=== PATIENT | female | born 1975 | race Caucasian/White ===

== ENCOUNTER 2019-01-19 13:53 | Emergency (ER) | payer OTHER ==
--- NOTE | 2019-01-19 14:08 | ED ---
HPI Chest Pain - HPI Summary HPI Summary: This pt is a 43 y/o female presenting to [facility] c/o left sided chest pain since 1999 last night. Pt reports she had just left the kitchen and sat down on the couch when her chest pain began last night. She describes chest pain located on the left side anteriorly "inside." Pt states her chest pain today moved from the front to her back and thought she had a pinched nerve. At around noon today pt notes her pain moved from her back to the front. Her chest pain is aggravated with coughing, sneezing, and deep breaths. Currently her chest pain is rated 5 or 6 out of 10 in severity. Pt called her PCP and was advised to come to the ED. She has never had this pain in the past. Denies recent long distance traveling or flying. Denies fever, nausea, vomiting, SOB. Pt reports she recently did cool sculpting in her legs for the first time yesterday. Denies any PMHx. Denies tobacco and drug use, but admits to occasional alcohol use. LMP: 4.5 years ago, pt has an IUD. Fhx: grandfather with fatal aortic aneurysm, [place] in the 50s. - History of Current Complaint Hx Obtained From: Patient Onset/Duration: Started Hours Ago, Still Present Timing: Lasting Hours Current Severity: Moderate Pain Intensity: 6 Pain Scale Used: 0-10 Numeric Chest Pain Location: Left Anterior Chest Pain Radiates: No Character: Sharp/Stabbing - sharp Aggravating Factor(s): Deep Breaths, Other: - coughing and sneezing Alleviating Factor(s): Nothing Associated Signs and Symptoms: Positive: Chest Pain. Negative: Shortness of Breath, Fever, Nausea, Vomiting - Allergy/Home Medications Allergies/Adverse Reactions: Allergies Allergy/AdvReac Type Severity Reaction Status Date / Time No Known Allergies Allergy Verified 01/19/19 14:04 Home Medications: Home Medications Bc Amino Acids 1 tab PO DAILY 01/19/19 [History Confirmed 01/19/19] Cyanocobalamin TAB* [Vitamin B12 TAB*] 500 mcg PO DAILY 01/19/19 [History Confirmed 01/19/19] LevoCETirizine TAB (NF) [Xyzal TAB (NF)] 5 mg PO DAILY 01/19/19 [History Confirmed 01/19/19] Levonorgestrel (IUD) (NF) [Mirena (NF)] 20 mcg IU ONCE 01/19/19 [History Confirmed 01/19/19] Naproxen Sodium [Aleve] 220 mg PO DAILY 01/19/19 [History Confirmed 01/19/19] predniSONE TAB* [Deltasone TAB*] 5 mg PO DAILY 01/19/19 [History Confirmed 01/19] PMH/Surg Hx/FS Hx/Imm Hx Endocrine/Hematology History: Denies: Hx Diabetes Cardiovascular History: Denies: Hx Hypertension - Family History Known Family History: Positive: Cardiac Disease - [place] at around age 50 Family History: Grandfather with fatal aortic aneurysm. - Social History Alcohol Use: Occasionally Substance Use Type: Reports: None Smoking Status (MU): Never Smoked Tobacco Review of Systems Negative: Fever Positive: Chest Pain Negative: Shortness Of Breath Negative: Vomiting, Nausea Musculoskeletal: Negative Skin: Negative All Other Systems Reviewed And Are Negative: Yes Physical Exam - Summary Physical Exam Summary: VITAL SIGNS: Reviewed. GENERAL: Patient is a well-developed and nourished female who is lying comfortable in the stretcher. Patient is not in any acute respiratory distress. HEAD AND FACE: No signs of trauma. No ecchymosis, hematomas or skull depressions. No sinus tenderness. EYES: PERRLA, EOMI x 2, No injected conjunctiva, no nystagmus. EARS: Hearing grossly intact. Ear canals and tympanic membranes are within normal limits. MOUTH: Oropharynx within normal limits. NECK: Supple, trachea is midline, no adenopathy, no JVD, no carotid bruit, no c- spine tenderness, neck with full ROM. CHEST: Symmetric, mild reproducible chest tenderness. LUNGS: Clear to auscultation bilaterally. No wheezing or crackles. CVS: Regular rate and rhythm, S1 and S2 present, no murmurs or gallops appreciated. ABDOMEN: Soft, non-tender. No signs of distention. No rebound no guarding, and no masses palpated. Bowel sounds are normal. EXTREMITIES: FROM in all major joints, no edema, no cyanosis or clubbing. NEURO: Alert and oriented x 3. No acute neurological deficits. Speech is normal and follows commands. SKIN: Dry and warm Triage Information Reviewed: Yes Vital Signs Reviewed: Yes Procedures - Sedation Patient Received Moderate/Deep Sedation with Procedure: No Diagnostics - Laboratory Result Diagrams: 01/19/19 14:26 01/19/19 14:26 Lab Statement: Any lab studies that have been ordered have been reviewed, and results considered in the medical decision making process. - Radiology Chest XR Radiology Interpretation Completed By: Radiologist Summary of Radiographic Findings: IMPRESSION: No evidence for active cardiopulmonary disease. Dr. Carbone has reviewed this report. - EKG 13:56 Cardiac Rate: NL - at 89 bpm EKG Rhythm: Sinus Rhythm EKG Comparison: No Significant Change - similar to prior EKG on 04/23/14. Summary of EKG Findings: EKG at 13:56 shows normal sinus rhythm at a rate of [address] depression in leads I, II, V5, and V6. T wave inversion in leads III and aVF. Chest Pain Course/Dx - Course Assessment/Plan: This patient is a 43-year-old female who presents to the emergency room with a chief complaint of having chest pain. Chest pain is sharp , increases with deep respirations and movement of her neck. Blood test results without any significant abnormality including troponin of 0.00. D- dimer is less than 200. Chest x-ray impression: No acute pathology. In the ED course the patient was given Toradol for the pain and the patient reports significant improvement. Heart score: 0. I discussed all the findings and test results with the patient. Patient was instructed to return to the emergency room immediately if any of the symptoms return or worsen. Plan of care was discussed with the patient, and she understands and agrees. All questions were answered at patient satisfaction. There were no further complaints or concerns. Lung exam before discharge: CTA B/L. Good air exchange. No wheezing or crackles heard. CVS: S1 and S2 present. No murmurs appreciated. Patient is alert and oriented x 3. Patient is hemodynamically stable. Patient will be discharged home with follow up from her PCP in the next 2-3 days. - Chest Pain Differential Diagnosis/HQI/PQRI: Acute [place], ACS, Angina, CHF, Chest Wall, GI Disease, Lower Respiratory Infection, Pulmonary Edema - Diagnoses Provider Diagnoses: Chest pain Discharge ED - Sign-Out/Discharge Documenting (check all that apply): Patient Departure - Discharge home - Discharge Plan Condition: Stable Disposition: HOME Patient Education Materials: Chest Pain (ED) Referrals: Jazlyn Osorio MD [Primary Care Provider] - Additional Instructions: FOLLOW UP WITH YOUR PRIMARY CARE PROVIDER IN 2-3 DAYS. RETURN TO THE EMERGENCY DEPARTMENT FOR ANY WORSENING OR NEW SYMPTOMS. - Billing Disposition and Condition Condition: STABLE Disposition: Home - Attestation Statements Document Initiated by Roxi: Yes Documenting Scribe: Soha Meyer Provider For Whom Ambare is Documenting (Include Credential): Geraldo Carbone MD Scribe Attestation: Soha Sherwood, scribed for Geraldo Carbone MD on 01/19/19 at 2119. Scribe Documentation Reviewed: Yes Provider Attestation: The documentation as recorded by the Soha fang accurately reflects the service I personally performed and the decisions made by me, Geraldo Carbone MD Status of Scribe Document: Viewed
--- OUTSIDE RECORDS SUMMARY | 2019-01-19 14:32 | XMS REPORT | Continuity of Care Document ---
:1975 External Reference #:[id number] Author Name Jazlyn Osorio M.D. Address [address] [place] [address] Care Team Providers Name Role Phone Jazlyn Osorio - Family Medicine Care Team Information Dipper Machine Operator Selena ENT - Otolaryngology Care Team Information Dipper Machine Operator [phone] Jeffery Gleason MD - Dermatology Care Team Information Dipper Machine Operator [phone] Problems Active Problems Provider Date Refractory migraine without aura Misbah Krishnamurthy M.D. Onset: 09/07/2011 Neoplasm of uncertain behavior of skin Jeanna Cody M.D. Onset: 2011 Arthralgia of the lower leg Jeanna Cody M.D. Onset: 03/04/2011 Generalized anxiety disorder Jeanna Cody M.D. Onset: 03/04/2011 Adult health examination Jeanna Cody M.D. Onset: 03/04/2011 Social History Type Date Description Comments Sex Unknown Tobacco Use Start: Unknown Never Smoked Cigarettes ETOH Use Social Alcohol drinks 2-3 nights a week ; drinks 2- 4 at a time. Trying to keep it to 2 days a week, shares a bottle of wine one night. Tobacco Use Start: Unknown Patient has never smoked Smoking Status Reviewed: 01/06/19 Patient has never smoked Allergies, Adverse Reactions, Alerts Description No Known Drug Allergies Medications Active Medications SIG Qnty Indications Ordering Date Provider Vivotif take 1 pill on 4caps Z71.84 Jazlyn Quintero 01/06/[address] fam Osorio M.D. complete the whole dosing at least one week prior to exposure. Xyzal Allergy 24HR 1 by mouth every day Unknown 06/29/2016 prn 5mg Tablets Mirena (52 MG) 2014 Unknown 20mcg/24HR IUD Immunizations CPT Code Status Date Vaccine Lot # [id number] Given 11/18/2018 Hep A Adlt Immunization [id number] Vital Signs Date Vital Result Comment 01/06/2019 10:21am BP Systolic 80 mmHg BP Diastolic 64 mmHg Heart Rate 74 /min Body Temperature 97.7 F Respiratory Rate 12 /min Height 65.5 inches 5'5.50" measured Weight 145.00 lb BMI (Body Mass Index) 23.8 kg/m2 08/18/2018 11:36am BP Systolic 120 mmHg BP Diastolic 82 mmHg Heart Rate 72 /min Body Temperature 98.6 F Respiratory Rate 16 /min Height 65.25 inches 5'5.25" measured 11/17/16 Weight 147.00 lb BMI (Body Mass Index) 24.3 kg/m2 Results Test Date Facility Test Result H/L Range Note Comprehensive Metabolic 12/30/2018 [facility] Sodium 138 mEq/L 134-149 Prof Potassium 5.6 mEq/L High 3.6-5.5 Chloride 106 mEq/L 94-112 Carbon Dioxide 24 mEq/L 21-32 Glucose 103 mg/dL 70-105 BUN 15 mg/dL 6-26 Creatinine 1.0 mg/dL 0.6-1.4 BUN/Creat Ratio 15.0 CALC 8.0-36.0 Calcium 10.1 mg/dL 8.6-10.2 Total Protein 7.4 g/dL 6.4-8.3 Albumin 4.9 g/dL 3.8-5.5 Globulin 2.5 g/dL 2.0-4.8 A/G Ratio 2.0 CALC 0.6-2.3 Alk. Phosphatase 48 U/L 30-110 Alt (SGPT) 13 U/L 7-35 Ast (Sgot) 23 U/L 5-34 Total Bilirubin 0.7 mg/dL 0.2-1.3 GFR Non- >60 ml/min/1.73m^ >=60 GFR >60 ml/min/1.73m^ >=60 Lipid Profile 12/30/2018 [facility] Cholesterol 220 mg/dL High 120-200 Triglycerides 68 mg/dL 30-200 HDL Cholesterol 88 mg/dL High 30-85 LDL (Calculated) 118 CALC 0-129 VLDL Cholesterol 14 mg/dL 0-50 HDL Risk Factor 2.5 CALC 0.0-4.4 CBC Electronic [facility] 12/30/2018 [facility] WBC 4.9 x10^3/UL 4.0- 10.0 RBC 4.43 x10^6/UL 3.93-6.00 HGB 14.5 g/dL 12.0-17.0 HCT 42 % 35-50 MCV 94.8 fL 80.0-95.0 MCH 32.7 pg High 25.6-32.2 MCHC 34.5 g/dL 32.2-36.0 RDW-CV 11.7 % 11.6-14.4 PLT 316 x10^3/UL 163-400 MPV 10.1 fL 9.4-12.4 Lisandra# 2.88 x10^3/UL 1.56-6.13 Lymph# 1.30 x10^3/UL 1.18-3.74 Pinal# 0.55 x10^3/UL 0.24-0.82 Eos # 0.2 x10^3/UL 0.0-0.5 Baso # 0.03 x10^3/UL 0.01-0.08 Lisandra% 58.6 % 34.0-70.0 Lymph % 26.4 % 20.0-52.0 Pinal% 11.2 % 5.0-12.0 Eos% 3.0 % 0.7-7.0 Baso% 0.6 % 0.1-1.2 Procedures Date Code Description Status 03/01/1995 [id number] Mammogram Completed Medical Devices Description No Information Available Encounters Type Date Location Provider Dx Diagnosis Office Visit 08/18/2018 [facility] Jazlyn Quintero L02.411 Cutaneous abscess 11:00a Dulce Osorio of right axilla R22.0 Localized swelling, mass and lump, head L30.9 Dermatitis, unspecified Assessments Date Code Description Provider 01/06/2019 Z23 Encounter for immunization Jazlyn Osorio M.D. 01/06/2019 Z00.00 Encounter for general adult medical Jazlyn Osorio M.D. examination without abnormal findings 01/06/2019 E87.5 Hyperkalemia Jazlyn Osorio M.D. 01/06/2019 Z71.84 Encounter for health counseling related to Jazlyn Osorio M.D. travel 12/30/2018 Z00.00 Encntr for general adult medical exam w/o Jazlyn Osorio M.D. abnormal findings 11/18/2018 Z23 Encounter for immunization Jazlyn Osorio M.D. 08/18/2018 L02.411 Cutaneous abscess of right axilla Jazlyn Osorio M.D. 08/18/2018 R22.0 Localized swelling, mass and lump, head Jazlyn Osorio M.D. 08/18/2018 L30.9 Dermatitis, unspecified Jazlyn Osorio M.D. Plan of Treatment Future Appointment(s):05/22/2019 9:15 am - J[facility] M.D[facility] at [facility]01/06/2019 - Jazlyn Osorio M.D.Z23 Encounter for immunizationComments:tetanus shot today.Z00.00 Encounter for general adult medical examination without abnormal findingsComments:You are in excellent general health. I recommend regular physical exams with attention to good nutrition and exercise, eye exams every other year, and dental exams twice yearly. Goals:2 fresh fruits daily3 helpings of fresh green and multicolored vegetablesEat from the whole color spectrum. 40-60 Oz water dailyMOVE YOUR BODY. Bodies were made to be moved. exercise 30 minutes at least 4-5 times [id number] HyperkalemiaNew Labs:Basic Metabolic-[facility], Ordered: Z71.84 Encounter for health counseling related to travelNew Medication: Vivotif - take 1 pill on alternating days . complete the whole dosing at least one week prior to exposure.AllComments:Medication Management Patient Understands medications she's taking? Yes No Are there Barriers to Adherence? Yes No Has the patient been asked about herbal supplements and therapies, and OTC meds? Yes No Functional Status Description No Information Available Mental Status Description No Information Available Referrals Refer to Reason for Referral Status Appt Date Jeffery Gleason MD evaluate and treat Scheduled 11/03/2018 [facility] [address] [place] [id number] [phone]
[2019-01-19 14:35] LABS: ABS Basophils 0.1 10^3/ul (0-0.2); ABS Eosinophils 0.1 10^3/ul (0-0.6); ABS Lymphocytes 1.2 10^3/ul (1.0-4.8); ABS Monocytes 0.6 10^3/ul (0-0.8); ABS Neutrophils 7.1 10^3/ul (1.5-7.7); Eosinophil % 0.8 %; Hematocrit 41 % (35-47); Hemoglobin 14.1 g/dL (12.0-16.0); Lymphocyte % 13.4 %; Mean Corpuscular HGB Conc 34 g/dL (31-36); Mean Corpuscular Hemoglobin 33 pg (27-31); Mean Corpuscular Volume 96 fL (80-97); Mean Platelet Volume 8.3 fL (7.4-10.4); Platelet Count 297 10^3/uL (150-450); Red Blood Count 4.32 10^6 /uL (3.70-4.87); Red Cell Distribution Width 13 % (10-15); White Blood Count 9.1 10^3/uL (3.5-10.8)
[2019-01-19 14:40] LABS: INR 1.02 (0.82-1.09)
[2019-01-19 14:52] LABS: Albumin 4.5 g/dL (3.2-5.2); Albumin/Globulin Ratio 1.7 (1-3); BUN/Creatinine Ratio 14.5 (8-20); Calcium 9.6 mg/dL (8.6-10.3); EGFR African American 91.7 (>60); EGFR Non-African American 75.8 (>60); Globulin 2.7 g/dL (2-4); Potassium 3.8 mmol/L (3.5-5.0); Total Bilirubin 0.8 mg/dL (0.2-1.0); Total Protein 7.2 g/dL (6.4-8.9)
[2019-01-19] MEDS: Ketorolac INJ* 30 MG/ML 1 ML VIAL IV PUSH ONE (15:30)
[2019-01-19 17:25] VITALS: BP 132/77
== END 2019-01-19 17:20 | disposition home or self-care (01) ==
LOC: ED 13:53
DX: R07.9 Chest pain, unspecified (principal); Z79.899 Other long term (current) drug therapy
CPT/HCPCS: 36415; 71045; 80053; 84484; 85025; 85379; 85610; 93005; 96374; 99282; J1885